=== PATIENT | female | born 1995 | race American Indian/Alaskan Native ===

== ENCOUNTER 2024-10-15 18:43 | Emergency (ER) | payer OTHER, SELFPAY ==
[2024-10-15 18:45] VITALS: BP 126/73
[2024-10-15 19:12] LABS: Hematocrit 36.7 % (37.0-47.0); Hemoglobin 12.2 g/dL (12.0-16.0); Mean Corp Hgb Conc. 33.2 g/dL (33.0-37.0); Mean Corpuscular Volume 85.3 fL (81.0-99.0); Nucleated Red Blood Cells % 0 %; Platelet Count 249 10^3/uL (130-400); Red Cell Dist. Width 13.1 % (11.5-14.5)
[2024-10-15 19:19] LABS: HCG, Serum Qualitative Screen Negative
[2024-10-15 19:29] LABS: ALT (SGPT) 17 U/L (0-35); AST (SGOT) 20 U/L (14-36); Albumin 4.1 g/dl (3.5-5.0); Alkaline Phosphatase 50 U/L (38-126); Blood Urea Nitrogen 7 mg/dl (7-17); Calcium 9.1 mg/dl (8.4-10.2); Carbon Dioxide 23 mmol/L (22-30); Chloride 110 mmol/L (98-107); Glucose 92 mg/dl (70-99); Potassium 3.7 mmol/L (3.5-5.1); Sodium 139 mmol/L (135-145); Total Protein 6.5 g/dl (6.3-8.2); eGFR > 60.00
--- NOTE | 2024-10-15 19:59 | ED.GENMED ---
History of Present Illness
General
Chief Complaint: Back Pain
Time Seen by Provider: 10/15/24 19:59
History of Present Illness
History of Present Illness:
TIME OF INITIAL EVALUATION
- 8 PM
REVIEW OF OLD RECORDS
- No significant old records or old for review
CHIEF COMPLAINT(S)
Debilitating back pain.
HISTORY OF PRESENT ILLNESS
The patient is a 29-year-old female who presents with severe, debilitating back pain. The patient reports a history of urinary tract infection (UTI) symptoms in mid-September and again on October 04, for which she self-treated with asfu-wve-ldzqsqk Azo
without seeing a doctor or receiving antibiotics. The symptoms resolved with this treatment. During her college years, the patient had a similar episode that progressed to a kidney infection and was successfully treated with antibiotics, though she
does not recall the specific medication used.
Currently, she denies any UTI symptoms. She did visit her general practitioner recently, where a urine test was conducted, revealing no signs of infection, yet antibiotics were prescribed just in case. The pain is described as starting in the lower
back and now radiating to the upper back. She rates the pain as debilitating and unresponsive to njlm-hvz-jqjbnan pain medications like Aleve. The pain intensifies when upright but subsides when lying down. The patient describes the pain as similar
to severe menstrual cramps, although she notes it is not related to her menstrual cycle, as she is mid-cycle and typically regular.
The patient is considering a possible kidney infection due to past experiences or even a kidney stone, as suggested by the attending physician. She mentions feeling cramping and having lost appetite for the past few days.
PHYSICAL EXAM
General: Alert, no acute distress, appears fairly comfortable.
Skin: Warm, dry.
Head: Normocephalic, atraumatic.
Neck: Supple, trachea midline.
Eye, Ears, Nose, Mouth and Throat: Oral mucosa moist.
Cardiovascular: Normal peripheral perfusion, No edema.
Respiratory: Respirations are non-labored.
Gastrointestinal: Abdomen nondistended.
Back: Some vague discomfort noted to palpation of the lumbar region on the left side
Musculoskeletal: Normal range of motion, normal strength.
Neurological: Alert and oriented to person, place, time, and situation, No focal neurological deficit observed.
Psychiatric: Cooperative, appropriate mood & affect.
PLAN
1. Perform a CT scan of the abdomen and pelvis to investigate potential kidney stones and assess any other abnormalities.
2. Administer intravenous Toradol, a non-narcotic anti-inflammatory medication, for pain relief.
3. Continue monitoring the patients symptoms and response to treatment.
4. Re-evaluate and discuss further management based on the CT scan results.
DIFFERENTIAL DIAGNOSIS
The Differential Diagnosis includes, in no particular order and is not limited to:
1. Kidney stone
2. Pyelonephritis (kidney infection)
3. Musculoskeletal back pain
4. Endometriosis
5. Interstitial cystitis
6. Spinal disc herniation
7. Appendicitis
8. Gastrointestinal conditions (e.g., diverticulitis)
9. Ovarian cyst or other gynecological pathology
10. Renal artery embolism
RADIOLOGY
- CT of the abdomen pelvis obtained, no sign of ureteral stone
LABS
- White count is normal, hCG negative, urinalysis shows no blood or infection
UPDATE
The patient was given Toradol IV
SUMMARY OF ENCOUNTER
The patient, a 29-year-old female, presented to the emergency department with severe, debilitating back pain radiating from the lower to the upper back, unresponsive to mqnm-klc-pfdtiwu pain medications like Aleve and Tylenol. Initial concerns
included the possibility of a kidney stone, a kidney infection, or musculoskeletal issues. A CT scan revealed no significant abnormalities, but a very small non-obstructive kidney stone in one kidney was noted, which was not the cause of current
symptoms. A urine test showed no signs of infection or blood. The patient reported constipation, and the scan indicated quite a bit of stool in the colon, suggesting possible contributing factors to her discomfort. Management involved administering
a dose of cyclobenzaprine (Flexeril) for possible musculoskeletal pain, and advised the patient to try polyethylene glycol (MiraLAX) for constipation. No signs of urinary tract infection were present, so discontinuation of antibiotics was advised.
DISPOSITION
Discharge.
ASSESSMENT
Musculoskeletal back pain with contributing constipation; small non-obstructive kidney stone not causing current symptoms.
EMERGENCY TREATMENTS ADMINISTERED
Cyclobenzaprine (Flexeril) was administered.
PLAN
Administer a dose of cyclobenzaprine in the emergency department. Advise the patient to start polyethylene glycol (MiraLAX) for constipation. Continue using bdig-zyg-fbascge anti-inflammatory medications at home. Discontinue antibiotics as no
urinary tract infection was indicated.
PATIENT EDUCATION AND COUNSELING
The patient was educated on the likely musculoskeletal nature of the back pain and the potential contribution of constipation. Instructions were given for using polyethylene glycol for bowel movement regulation. Disconnection from antibiotics was
discussed due to the lack of UTI presence. The patient was advised on the use of cyclobenzaprine for muscle pain management and encouraged to follow up if symptoms do not improve.
FOLLOW-UP INSTRUCTIONS
Follow-up with primary care physician if ongoing issues persist or if MRI consideration becomes necessary due to persistent symptoms.
MEDICATION RECONCILIATION
- Cyclobenzaprine (Flexeril) administered and prescription given.
- Polyethylene glycol (MiraLAX) recommended for constipation.
- Discontinue antibiotics due to lack of indication.
MEDICAL DECISION MAKING
-Complexity of Data Reviewed: Chronic conditions affecting care include history of UTI symptoms treated with wprk-smt-jmgocwh medications. Differential diagnosis included kidney stone, pyelonephritis, musculoskeletal back pain, and endometriosis
among others.
-Data:
Category 1
My independent interpretation of the CT scan showed a non-obstructive small kidney stone, quite a bit of stool in the colon, and no other significant findings.
Category 2
Not applicable.
Category 3
Management discussed with the patient regarding non-urgent nature of symptoms and reasoning against MRI at the current stage given the emergent care context.
-Risk: Prescription medication was prescribed: Cyclobenzaprine (Flexeril). Consideration of Admission/Observation: Escalation of care including admission/observation was considered given the complexity and risk of the patients presenting complaint,
exam findings, and/or their underlying comorbidities. However, ultimately I feel the patient is safe for outpatient management with close follow up. Reasoning: Work-up reassuring, does not reveal any acute life/organ threatening processes, patients
symptoms well controlled upon reevaluation, reexamination is reassuring, vitals are stable, patient agreeable with discharge, reliable for follow-up.
DIAGNOSIS
1. Musculoskeletal back pain (M54.5)
2. Constipation (K59.00)
3. Small non-obstructive kidney stone (N20.0)
Phy Exam
Physical Exam
Physical Exam:
See HPI
Course
Orders/Labs/Results
Orders:
Orders
10/15/24 18:49
Test Result ONCE
10/15/24 18:54
Complete Blood Count/With Diff Urgent
Comprehensive Metabolic Panel Urgent
HCG, Serum Qualitative Screen Urgent
10/15/24 20:06
Urinalysis Reflex To Culture Urgent
Date Specimen was Collected: 10/15/24
Time Specimen was Collected: 18:49
10/15/24 20:07
CT Abd/pel Without Iv Or Oral Urgent
Comment:
Reason For Exam: L flank pain
10/15/24 20:08
Ketorolac [Toradol] 15 mg IV NOW STA
10/15/24 22:09
Cyclobenzaprine HCl [Flexeril] 10 mg PO NOW STA
Abnormal Lab Results
10/15/24
18:54
Hct 36.7 L %
(37.0-47.0)
Chloride 110 H mmol/L
(98-107)
10/15/24 18:54
10/15/24 18:54
Vital Signs
Initial and Last Documented VS:
Initial Vital Signs
Temp Pulse Resp BP Pulse Ox
36.7 C 63 18 126/73 100
07/15/25 18:45 10/15/24 18:45 10/15/24 18:45 10/15/24 18:45 10/15/24 18:45
Last Documented Vital Signs
Temp Pulse Resp BP Pulse Ox
36.7 C 63 18 126/73 100
10/15/24 20:15 10/15/24 18:45 10/15/24 18:45 10/15/24 18:45 10/15/24 20:15
*Pulse Oximetry
SaO2: 100
Oxygen Mode of Delivery: Room air
Patient hypoxic: no
*Critical Care Note
Total Time (30-74mins, 75-104mins- exclusive of procedures): Not Applicable
ED Attending Note
-
Portions of this chart may have been created with voice recognition software.� Occasional wrong word or��sound alike� substitutions may have occurred due to the inherent limitations of voice recognition software.
Discharge Plan
Departure
Patient Disposition: Home (Routine Discharge)
Date of Disposition: 10/15/24
Time of Disposition: 22:10
Patient with high blood pressure during this ER visit?: Yes
Discharge Problem:
Back pain
Instructions: Low Back Pain (DC), BLOOD PRESSURE
Prescriptions:
New
cyclobenzaprine 10 mg tablet
10 mg PO TID PRN (Reason: pain) Qty: 15 0RF
Referrals:
UNKNOWN - PT DOES,NOT KNOW [Family Provider]
Activity Restrictions/Additional Instructions:
The cause of your pain is unclear. It could be related to inflamed/tense muscle tissue of the low back. Your blood work is normal. Your urinalysis shows no sign of infection. The CAT scan shows an increased amount of stool for which I recommend
trying yvpo-acm-ullhnfc MiraLAX. Continue NSAIDs. Incidentally a 'punctate nonobstructing stone' was noted in the left kidney however this would not be the cause of any of your pain as it is not stuck in the ureter. Return here if worse or other
concerns. I am sending a prescription for Flexeril to your pharmacy.
Interventions
Interventions:
*Risk Screen - Suicide Last Done: 10/15/24 18:45
*General Assessment Last Done: 10/15/24 20:08
*Neglect/Abuse Screening Last Done: 10/15/24 18:45
*ED- Fall Risk Assessment Last Done: 10/15/24 20:08
*ED COVID-19 Vaccine History Last Done: 10/15/24 20:08
ED-Musculoskeletal Assessment Last Done: 10/15/24 20:08
Discharge Date and Time
Print Language: MOSOTHO
[2024-10-15 20:07] VITALS: BMI 23.4
[2024-10-15 20:13] VITALS: BP 99/70
[2024-10-15 20:15] LABS: Urine Character Clear (Clear)
[2024-10-15] MEDS: TORADOL 15 MG IV (20:21)
[2024-10-15] MEDS: FLEXERIL 10 MG PO (22:28)
[2024-10-15 22:29] VITALS: BP 101/86
== END 2024-10-15 22:54 | disposition home or self-care (01) ==
LOC: EMR 18:43
PROVIDERS: Emergency Medicine; EMERGENCY PHYSICIAN Emergency Medicine
DX: M54.50 Low back pain, unspecified (principal); N20.0 Calculus of kidney
CPT/HCPCS: 96374; 99284; 74176; 80053; 81003; 84703; 85025